=== PATIENT | female | born 1970 | race Native Hawaiian/Other Pacific Islander ===

== ENCOUNTER 2017-02-06 11:49 | Emergency (ER) | payer OTHER, BC ==
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
[2017-02-06] MEDS ORDERED: MOTRIN PO ONE (16:56)
[2017-02-06] MEDS ORDERED: FLEXERIL PO ONE (16:56)
[2017-02-06 18:20] VITALS: BP 116/75
== END 2017-02-06 18:19 | disposition home or self-care (01) ==
LOC: ED 11:49
DX: M54.5 Low back pain (principal); R51 Headache; V49.49XA Driver injured in collision with other motor vehicles in traffic accident, initial encounter; Y93.89 Activity, other specified; Y92.89 Other specified places as the place of occurrence of the external cause; Y99.8 Other external cause status
CPT/HCPCS: 81025; 99283